=== PATIENT | female | born 2000 | race Caucasian/White ===

== ENCOUNTER → 2022-06-03 09:04 | Outpatient (CLI) | payer OTHER, SELFPAY ==
[2022-06-03 09:50] LABS: Basophils # 0.2 K/mm3 (0-0.2); Basophils % 1.5 % (0.1-2.0); Eosinophils # 0.5 K/mm3 (0.0-0.4); Eosinophils % 4.8 % (0.1-12.0); Hematocrit 41.2 % (37.0-47.0); Hemoglobin 13.6 g/dL (12.2-16.2); Lymphocytes # 2.7 K/mm3 (0.7-4.5); Lymphocytes % 23.5 % (10-50); Mean Corpuscular Hemoglobin 26.2 pg (27.0-31.2); Mean Corpuscular Volume 79.2 fl (81-99); Mean Platelet Volume 6.9 fl (7.4-10.4); Monocytes # 0.5 K/mm3 (0.1-1.0); Neutrophils # 7.5 K/mm3 (1.8-7.8); Neutrophils % 66.3 % (37.0-80.0); Platelet Count 437 K/mm3 (142-424); Red Blood Count 5.21 M/mm3 (4.20-5.40); Red Cell Distribution Width 14.1 % (11.5-17.5); White Blood Count 11.4 K/mm3 (4.8-10.8)
[2022-06-03 10:26] LABS: Alanine Aminotransferase 37 U/L (12-78); Albumin Level 4.2 g/dl (3.5-5.0); Albumin/Globulin Ratio 1.5 (1.1-1.8); Alkaline Phosphatase 90 U/L (38-126); Anion Gap 10.4 mEq/L (5-15); Aspartate Amino Transferase 33 U/L (14-36); Bilirubin,Total 0.4 mg/dl (0.2-1.3); Blood Urea Nitrogen 12 mg/dl (7-17); Carbon Dioxide 27 mmol/L (22.0-30.0); Chloride 104 mmol/L (98-107); Estimated Glomerular Filt Rate 103 ml/min (>60); GFR (African American) 124 ML/MIN (>60); Globulin 2.8 g/dL (1.3-3.2); Glucose 88 mg/dl (74-100); Potassium 4.4 mmoL/L (3.5-5.1); Sodium 137 mmol/L (136-145)
[2022-06-03 10:43] LABS: T4 (Thyroxine) 6.9 ug/dl (5.53-11.0)
[2022-06-03 10:57] LABS: Thyroid Stimulating Hormone 1.03 uIU/mL (0.465-4.68)
[2022-06-04 08:20] LABS: Thyroid Peroxidase Antibodies 12 IU/mL (0-34); Triiodothyronine (T3) Free 2.5 pg/mL (2.0-4.4)
[2022-06-04 13:03] LABS: Insulin Level Total 28.5 uIU/mL (2.6-24.9)
== END ==
PROVIDERS: PCP Nurse Practitioner Family; Visit Provider Nurse Practitioner Family
DX: F41.0 Panic disorder [episodic paroxysmal anxiety] (principal); F33.2 Major depressive disorder, recurrent severe without psychotic features
CPT/HCPCS: 36415; 80053; 83525; 84436; 84443; 84481; 85025; 86376

== ENCOUNTER → 2022-06-20 10:26 | Outpatient (CLI) | payer OTHER, SELFPAY ==
--- NOTE | 2022-06-20 10:26 | US_ITS ---
FINAL REPORT CLINICAL HISTORY: irregular periods FINDINGS: Transvaginal sonographic images of the pelvis were obtained. The uterus measures 6.4 x 3.5 x 2.7 cm. The endometrium measures 6 mm, which is within normal limits. No uterine mass is identified. The right ovary measures 3.1 cm in length and left ovary measures 2.8 cm in length. Normal blood flow seen to the ovaries. Multiple follicles are present bilaterally. There is no evidence of free fluid. IMPRESSION: Multiple follicles are present in each ovary, may represent PCOS. Reviewed, Interpreted and Dictated by Maximino Acosta III, MD Transcribed by Keysha Arreguin Authenticated and [facility]
== END ==
PROVIDERS: PCP Nurse Practitioner Family; Visit Provider Obstetrics & Gynecology
DX: N92.6 Irregular menstruation, unspecified (principal)
CPT/HCPCS: 76830

== ENCOUNTER 2022-10-03 20:54 | Emergency (ER) | payer OTHER, SELFPAY ==
[2022-10-03 20:57] VITALS: BP 155/91; PULSE 71; RESP 18; TEMP 36.8; O2SAT 97; BMI 40.7
--- NOTE | 2022-10-03 21:02 | PC.NURSE ---
Dr. Clifford at
--- NOTE | 2022-10-03 21:03 | XR_ITS ---
PROCEDURE INFORMATION: Exam: XR Left Foot Exam date and time: 10/03/2022 9:02 PM Age: 22 years old Clinical indication: Injury or trauma; Other: Stubbed left fifth pinky toe. Blunt trauma; Foot; Patient HX: Stubbed left 5th (pinky) toe Monday night. ; Additional info: Fifth toe pain TECHNIQUE: Imaging protocol: Radiologic exam of the left foot. Views: 3 or more views. COMPARISON: No relevant prior studies available. FINDINGS: Bones/joints: Apparent subtle irregularity base of fifth distal phalanx. Possible synostosis of fifth middle and distal phalanges. No dislocation. Soft tissues: Soft tissue swelling of fifth digit. IMPRESSION: Possible fifth distal phalanx fracture. Consider dedicated radiographs of fifth digit.
--- NOTE | 2022-10-03 21:33 | HMH.EDGENADL ---
Discharge Plan Disposition Patient Disposition: Home, Self-Care Condition: Good Chief Complaint: PAIN Prescriptions Prescriptions: No Action Aimovig Autoinjector 140 mg/mL auto-injector 140 mg SQ QMONTH eletriptan 20 mg tablet 20 mg PO Q2H PRN Rx Instructions: do not exceed 2 doses per 24 hrs propranolol 60 mg tablet 60 mg PO BID topiramate 25 mg tablet 25 mg PO DAILY bupropion HCl 100 mg tablet 100 mg PO ONCE escitalopram oxalate 20 mg tablet 20 mg PO DAILY metformin 500 mg tablet extended release 24 hr 500 mg PO TIDWMEAL Qty: 90 2RF Referrals Follow up/Referrals: Provider,Referral, MD [Primary Care Provider] - See instructions Activity Restrictions/Add. Instructions Additional Instructions/Restrictions: Please follow-up with your primary care provider. Please return to the emergency department if you develop any new or worsening symptoms or become concerned for your health. Consider gabe taping your fourth and fifth toes as needed for comfort. Clinical Impressions Clinical Impression: Pain and swelling of toe of left foot Fracture of toe of right foot Qualifiers: Encounter type: initial encounter Toe: lesser toe Fracture type: closed Phalanx: distal Fracture alignment: nondisplaced Qualified Code(s): S92.534A - Nondisplaced fracture of distal phalanx of right lesser toe(s), initial encounter for closed fracture Discharge ED Provider: Jai Clifford Adult HPI General Chief complaint: PAIN Stated complaint: ao [id number]@1100 at home injured little toe Time Seen by Provider: 10/03/22 21:01 Mode of Arrival: Ambulatory Source of Information: Patient Limitations: No Limitations Description of Symptoms (Recalled from ER Triage Doc. by RN): Pt reports left pinky toe pain from an incident on monday. Toe is bruised and she is having increased pain. History of Present Illness HPI narrative: 22-year-old female reportedly previously healthy presents with left foot pain after striking her left fifth toe on the door a couple of days ago. Pain and discoloration are worsening so she presented to the ER. No other symptoms reported. Related Data Home Medications Medication Instructions Recorded Confirmed bupropion HCl 100 mg tablet 100 mg PO ONCE 06/16/22 07/21/22 eletriptan 20 mg tablet 20 mg PO Q2H PRN 06/16/22 07/21/22 erenumab-aooe 140 mg/mL 140 mg SQ QMONTH 06/16/22 07/21/22 subcutaneous auto-injector (Aimovig Autoinjector) escitalopram oxalate 20 mg tablet 20 mg PO DAILY 06/16/22 07/21/22 propranolol 60 mg tablet 60 mg PO BID 06/16/22 07/21/22 topiramate 25 mg tablet 25 mg PO DAILY 06/16/22 07/21/22 Previous Rx's Medication Instructions Recorded metformin 500 mg tablet,extended 500 mg PO TIDWMEAL #90 tabs 06/16/22 release 24 hr Allergies Allergy/AdvReac Type Severity Reaction Status Date / Time No Known Allergies Allergy Verified 07/21/22 14:53 [facility] Disclaimer: The information contained in this section may have been updated after the patient was seen, as this information can be updated by other users. Medical History Anxiety Depression HSIL (high grade squamous intraepithelial lesion) on Pap smear of cervix Irregular periods Migraine PCOS (polycystic ovarian syndrome) Surgical History H/O wrist surgery History of surgery on arm History of tonsillectomy [place] teeth extracted Social History Smoking Status: Never smoker alcohol intake: never current occupational status: employed Travel in the last 8 weeks: None ROS Obtained: Yes All systems reviewed & no additional complaints except as documented Physical Exam General General appearance: alert and in no apparent distress Head Head exam: atraumatic and normocephalic Eye Eye exam: Present norm
[2022-10-03 22:26] VITALS: BP 135/89; PULSE 73; RESP 18; TEMP 36.8
[2022-10-03 22:30] VITALS: BP 138/88; PULSE 74; RESP 18; TEMP 36.8
== END 2022-10-03 22:32 | disposition home or self-care (01) ==
PROVIDERS: Emergency Provider Emergency Medicine
DX: S92.534A Nondisplaced fracture of distal phalanx of right lesser toe(s), initial encounter for closed fracture (principal); W22.8XXA Striking against or struck by other objects, initial encounter; F41.9 Anxiety disorder, unspecified; F32.A Depression, unspecified; E28.2 Polycystic ovarian syndrome
CPT/HCPCS: 73630; 99283; 99284

== ENCOUNTER → 2022-11-04 14:53 | Outpatient (CLI) | payer OTHER, SELFPAY ==
--- NOTE | 2022-11-04 15:01 | XR_ITS ---
FINAL REPORT CLINICAL HISTORY: R ankle pain after fall FINDINGS: Right ankle Three views were obtained. There is no acute fracture or dislocation. The joint spaces appear normal. There is mild soft tissue edema about the ankle. IMPRESSION: No acute process. Reviewed, Interpreted and Dictated by Kevin Victoria MD Transcribed by Barbara Nails Authenticated and . [facility]
== END ==
PROVIDERS: PCP Student in an Organized Health Care Education/Training Program; Visit Provider Student in an Organized Health Care Education/Training Program
DX: M25.571 Pain in right ankle and joints of right foot (principal); W19.XXXA Unspecified fall, initial encounter
CPT/HCPCS: 73610

== ENCOUNTER 2023-08-06 05:39 | Emergency (ER) | payer BC, SELFPAY ==
--- NOTE | 2023-08-06 05:30 | ECG_ITS ---
APPROVED REPORT Exam: Resting ECG HR:76 bpm ECG Measurements Heart Rate 76 AXES NE 153 P 43 QRSd 100 QRS 67 QT 386 T 40 QTc 416 Conclusion SINUS RHYTHM WITH SINUS ARRHYTHMIA NORMAL ECG Electronically signed by : ARIAS GAMBOA, 08/06/2023 07:31:16
[2023-08-06 05:40] VITALS: BP 163/96; PULSE 85; RESP 19; TEMP 36.6; O2SAT 99; BMI 40.7
[2023-08-06 05:44] VITALS: BP 142/89; PULSE 73; RESP 16; TEMP 36.6; O2SAT 97
--- NOTE | 2023-08-06 05:48 | XR_ITS ---
PROCEDURE INFORMATION: Exam: XR Chest Exam date and time: 08/06/2023 6:32 AM Age: 23 years old Clinical indication: Chest wall pain; Additional info: Cp TECHNIQUE: Imaging protocol: Radiologic exam of the chest. Views: 1 view. COMPARISON: No relevant prior studies available. FINDINGS: Tubes, catheters and devices: Leads overlying chest. Lungs: Mild underinflation. No definite consolidation. Pleural spaces: No significant pleural effusion. No pneumothorax. Heart/Mediastinum: No cardiomegaly. Bones/joints: No displaced fracture. Soft tissues: Unremarkable. IMPRESSION: No definite acute cardiopulmonary disease.
--- NOTE | 2023-08-06 05:49 | ED_ITS ---
Discharge Plan Disposition Patient Disposition: Home, Self-Care Prescriptions Prescriptions: No Action Aimovig Autoinjector 140 mg/mL auto-injector 140 mg SQ QMONTH eletriptan 20 mg tablet 20 mg PO Q2H PRN Rx Instructions: do not exceed 2 doses per 24 hrs propranolol 60 mg tablet 60 mg PO BID topiramate 25 mg tablet 25 mg PO DAILY bupropion HCl 100 mg tablet 100 mg PO ONCE escitalopram oxalate 20 mg tablet 20 mg PO DAILY naproxen 500 mg tablet 500 mg PO BID Qty: 20 0RF Referrals Follow up/Referrals: Marko Ernst MD [Staff Physician] - See instructions Provider,MD Jennifer [Primary Care Provider] - See instructions Activity Restrictions/Add. Instructions Additional Instructions/Restrictions: At this time it was felt you are safe to be discharged home. If new or worsening symptoms please do not hesitate to return the emergency department. Please call and schedule appoint with Dr. Ernst as soon as you are able. Clinical Impressions Clinical Impression: Chest pain Discharge ED Provider: Al Canas [facility] General Chief Complaint: Chest Pain Stated Complaint: Chest Pain Time Seen by Provider: 08/06/23 05:41 Mode of Arrival: Ambulatory Source of Information: Patient Limitations: No Limitations Description of Symptoms (Recalled from ER Triage Doc. by RN): 23 F presents from home with c/o right sided chest pain that started around 2300 last night prior to her going to bed. This pain woke her up around 0100 so she took some Tylenol and went back to bed. She woke up around 0500 and the pain was worse and all over now. Patient reports this as sharp, pressure rated 7/10. NAD, VSS History of Present Illness HPI narrative: Patient is a 23-year-old female with no pertinent past medical history who presents emergency department for evaluation of chest tightness. Onset was acute, occurring at 11 PM last night, diffuse chest tightness. Due to persistent symptoms she presents here for continued evaluation. No other acute complaints at this time. Related Data Home Medications Medication Instructions Recorded Confirmed bupropion HCl 100 mg tablet 100 mg PO ONCE 06/16/22 11/04/22 eletriptan 20 mg tablet 20 mg PO Q2H PRN 06/16/22 11/04/22 erenumab-aooe 140 mg/mL 140 mg SQ QMONTH 06/16/22 11/04/22 subcutaneous auto-injector (Aimovig Autoinjector) escitalopram oxalate 20 mg tablet 20 mg PO DAILY 06/16/22 11/04/22 propranolol 60 mg tablet 60 mg PO BID 06/16/22 11/04/22 topiramate 25 mg tablet 25 mg PO DAILY 06/16/22 11/04/22 Previous Rx's Medication Instructions Recorded naproxen 500 mg tablet 500 mg PO BID #20 tabs 11/04/22 Allergies Allergy/AdvReac Type Severity Reaction Status Date / Time No Known Allergies Allergy Verified 11/04/22 13:35 [facility] Disclaimer: The information contained in this section may have been updated after the patient was seen, as this information can be updated by other users. Medical History Anxiety Depression HSIL (high grade squamous intraepithelial lesion) on Pap smear of cervix Hypertension Irregular periods Migraine PCOS (polycystic ovarian syndrome) Surgical History H/O wrist surgery History of surgery on arm History of tonsillectomy [place] teeth extracted Social History Smoking Status: Never smoker alcohol intake: never current occupational status: employed Travel in the last 8 weeks: None ROS Obtained: Yes Systems reviewed as appropriate & no additional complaints except as documented Physical Exam General General appearance: alert and in no apparent distress Head Head exam: atraumatic and normocephalic Eye Eye exam: Present PERRL ENT ENT exam: Present mucous membranes moist Neck Neck exam: Present normal inspection Chest Chest inspection: Present normal inspection and symmetric chest wall rise Respiratory Respiratory exam: Present normal lung sounds bilaterally; Absent respiratory distress Cardiovascular Cardiovascular exam: Present regular rate and normal rhythm Abdominal Exam Abdominal exam: Present soft; Absent tenderness Extremities Exam Extremities exam: Present normal inspection Neurological Exam Neurological exam: Present alert Psychiatric Psychiatric exam: Present normal affect Skin Skin exam: Present warm and dry HEART Score HEART Score HEART Score assessment performed?: Yes History (anamnesis): Moderately suspicious ECG: Normal Age: <45 years Risk factors: 1-2 risk factors Troponin: </= normal limit HEART Score: 2 Critical Care Critical Care Time Critical Care Time: No Medical Decision Making Donnell Inquiry Pt receiving controlled substance: No Vital Signs Vital Signs: 08/06/23 05:40 08/06/23 05:44 Temperature 98 F 98 F Temperature Source Oral Oral Pulse Rate 73 Pulse Rate [Left] 85 Respiratory Rate 19 16 Blood Pressure 142/89 H Blood Pressure [Right Arm] 163/96 H Blood Pressure Mean [Right Arm] 118 Blood Pressure Source Automatic Cuff Blood Pressure Source [Right Arm] Automatic Cuff Blood Pressure Position Sitting Blood Pressure Position [Right Arm] Supine 02 Sat by Pulse Oximetry 99 97 Oxygen Delivery Method Room Air Room Air Lab Data Labs: Lab Results 08/06/23 06:00: WBC 13.2 H, RBC 4.99, Hgb 13.1, Hct 41.1, MCV 82.5, MCH 26.4 L, MCHC 31.9, RDW 14.3, Plt Count 360, MPV 7.6, Neut % (Auto) 64.2, Lymph % (Auto) 24.9, [place] % (Auto) 4.5, Eos % (Auto) 5.3, Baso % (Auto) 1.0, Neut # (Auto) 8.5 H, Lymph # (Auto) 3.3, [place] # (Auto) 0.6, Eos # (Auto) 0.7 H, Baso # (Auto) 0.1, Sodium 140, Potassium 3.6, Chloride 103, Carbon Dioxide 29, Anion Gap 11.6, BUN 13, Creatinine 0.70, Estimated Creat Clear 202, Estimated GFR 102, Est GFR ( Amer) 123, Glucose 114 H, Calcium 9.6, Total Bilirubin 0.3, AST 45 H, ALT 37, Alkaline Phosphatase 104, Troponin I < 0.01, Total Protein 7.3, Albumin 3.9, Globulin 3.4 H, Albumin/Globulin Ratio 1.1, Serum HCG, Qual Negative 08/06/23 06:00 08/06/23 06:00 Response Orders (Tests/Meds): ED MEDICATIONS Discontinued Medications Generic Name Dose Route Start Last Admin Trade Name Abrahamq PRN Reason Stop Dose Admin Acetaminophen 1,000 mg 08/06/23 05:45 08/06/23 05:54 Acetaminophen 500mg Tab PO 08/06/23 05:46 1,000 mg ONCE ONE Administration Aspirin 324 mg 08/06/23 05:47 08/06/23 05:54 Aspirin 81mg Chewable Tablet PO 08/06/23 05:48 324 mg ONCE ONE Administration Belladonna Alkaloids 60 ml 08/06/23 05:45 08/06/23 05:55 Belladonna Alkaloids 60 Ml Ml PO 08/06/23 05:46 60 ml ONCE ONE Administration Ketorolac Tromethamine 30 mg 08/06/23 05:45 08/06/23 05:55 Ketorolac 30mg/Ml Vial IV 08/06/23 05:46 30 mg ONCE ONE Administration Methocarbamol 1,000 mg 08/06/23 05:46 08/06/23 05:55 Methocarbamol 500mg Tablet PO 08/06/23 05:47 1,000 mg ONCE ONE Administration ORDERS Category Date Time Status CXR --portable [XR chest portable] Stat Exams 08/06/23 05:48 Completed CBC w/Auto Diff [Complete Blood Count Auto Diff] Stat Lab 08/06/23 06:00 Completed CMP [Comprehensive Metabolic Panel] Stat Lab 08/06/23 06:00 Completed HCG Qualitative, Serum Stat Lab 08/06/23 06:00 Completed Trop I [Troponin I] Stat Lab 08/06/23 06:00 Completed Troponin I Q3H Lab 08/06/23 09:00 Ordered Troponin I Q3H Lab 08/06/23 12:00 Ordered ECG Data Tracing #1: ECG Narrative: Independently interpreted by me, rate is 76, rhythm is regular, axis is normal, no ST elevation in anatomical contiguous leads, QTc 416. MDM Narrative Medical Decision Narrative: In summary patient is a 23-year-old female past medical history described above presents emergency department for evaluation of chest pain. Patient is hemodynamically stable nontoxic-appearing upon arrival, afebrile. Differential diagnosis includes ACS, noncardiac chest pain, among others. No concern for pulmonary embolism as patient is PERC negative. Initial interventions include multimodal pain control. Initial workup reviewed by me, hematologic labs are nonactionable, nonspecific mild leukocytosis, no HARDY or critical electrolyte abnormality. Initial troponin undetectably low. hCG negative. Upon repeat evaluation patient remained hemodynamically stable. Given this patient is appropriate for discharge at this time will be referred to Dr. Ernst on an outpatient basis.
[2023-08-06] MEDS: ASPIRIN 81MG CHEWABLE TABLET 324 MG PO (05:54)
[2023-08-06] MEDS: ACETAMINOPHEN 500MG TAB 1000 MG PO (05:54)
[2023-08-06] MEDS: BELLADONNA ALKALOIDS 60 ML ML PO (05:55)
[2023-08-06] MEDS: KETOROLAC 30MG/ML VIAL 30 MG IV (05:55)
[2023-08-06] MEDS: METHOCARBAMOL 500MG TABLET 1000 MG PO (05:55)
[2023-08-06 06:23] LABS: Basophils # 0.1 K/mm3 (0-0.2); Eosinophils # 0.7 K/mm3 (0.0-0.4); Eosinophils % 5.3 % (0.1-12.0); Hematocrit 41.1 % (37.0-47.0); Hemoglobin 13.1 g/dL (12.2-16.2); Lymphocytes # 3.3 K/mm3 (0.7-4.5); Lymphocytes % 24.9 % (10-50); Mean Corpuscular HGB Conc 31.9 g/dL (31.8-35.4); Mean Corpuscular Hemoglobin 26.4 pg (27.0-31.2); Mean Corpuscular Volume 82.5 fl (81-99); Mean Platelet Volume 7.6 fl (7.4-10.4); Monocytes # 0.6 K/mm3 (0.1-1.0); Monocytes % 4.5 % (1.7-9.3); Neutrophils # 8.5 K/mm3 (1.8-7.8); Neutrophils % 64.2 % (37.0-80.0); Platelet Count 360 K/mm3 (142-424); Red Blood Count 4.99 M/mm3 (4.20-5.40); Red Cell Distribution Width 14.3 % (11.5-17.5); White Blood Count 13.2 K/mm3 (4.8-10.8)
[2023-08-06 06:30] LABS: Alanine Aminotransferase 37 U/L (12-78); Albumin Level 3.9 g/dl (3.5-5.0); Albumin/Globulin Ratio 1.1 (1.1-1.8); Alkaline Phosphatase 104 U/L (38-126); Anion Gap 11.6 mEq/L (5-15); Aspartate Amino Transferase 45 U/L (14-36); Bilirubin,Total 0.3 mg/dl (0.2-1.3); Blood Urea Nitrogen 13 mg/dl (7-17); Calcium 9.6 mg/dl (8.4-10.2); Carbon Dioxide 29 mmol/L (22.0-30.0); Chloride 103 mmol/L (98-107); Creatinine Clearance Estimated 202 mL/min (50-200); Estimated Glomerular Filt Rate 102 ml/min (>60); GFR (African American) 123 ML/MIN (>60); Globulin 3.4 g/dL (1.3-3.2); Glucose 114 mg/dl (74-100); Potassium 3.6 mmoL/L (3.5-5.1); Sodium 140 mmol/L (136-145); Total Protein,Serum 7.3 g/dl (6.3-8.2)
[2023-08-06 06:31] LABS: HCG Qualitative, Serum Negative (Negative)
--- NOTE | 2023-08-06 06:33 | PC.NURSE ---
Pt states her pain is better after medication, Radiology called to come take portable CXR
--- NOTE | 2023-08-06 06:55 | PC.NURSE ---
Per Dr Canas, we will reach out to [facility] if they cannot assist we will dispo
[2023-08-06 07:01] VITALS: BP 135/89; PULSE 63; RESP 16; O2SAT 98
[2023-08-06 07:02] LABS: Troponin I < 0.01 ng/ml (0.00-0.034)
[2023-08-06 07:33] VITALS: BP 139/72; PULSE 79; RESP 18; TEMP 36.6; O2SAT 97
== END 2023-08-06 07:35 | disposition home or self-care (01) ==
PROVIDERS: Emergency Provider Emergency Medicine
DX: R07.89 Other chest pain (principal); I10 Essential (primary) hypertension
CPT/HCPCS: 71045; 80053; 84484; 84703; 85025; 93005; 96374; 99284

== ENCOUNTER 2023-11-09 10:45 | Outpatient (CLI) | payer BC, SELFPAY ==
[2023-11-09 11:11] LABS: Basophils # 0.1 K/mm3 (0-0.2); Basophils % 0.7 % (0.1-2.0); Eosinophils # 0.3 K/mm3 (0.0-0.4); Hematocrit 42.6 % (37.0-47.0); Hemoglobin 13.6 g/dL (12.2-16.2); Lymphocytes # 2.5 K/mm3 (0.7-4.5); Lymphocytes % 24.3 % (10-50); Mean Corpuscular HGB Conc 31.9 g/dL (31.8-35.4); Mean Corpuscular Hemoglobin 26.6 pg (27.0-31.2); Mean Corpuscular Volume 83.5 fl (81-99); Mean Platelet Volume 7.5 fl (7.4-10.4); Monocytes # 0.4 K/mm3 (0.1-1.0); Monocytes % 4.2 % (1.7-9.3); Neutrophils # 7.1 K/mm3 (1.8-7.8); Neutrophils % 67.7 % (37.0-80.0); Platelet Count 386 K/mm3 (142-424); Red Cell Distribution Width 14.5 % (11.5-17.5); White Blood Count 10.5 K/mm3 (4.8-10.8)
[2023-11-09 11:51] LABS: Albumin Level 4.2 g/dl (3.5-5.0); Chloride 107 mmol/L (98-107); Potassium 4.2 mmoL/L (3.5-5.1); Sodium 138 mmol/L (136-145)
[2023-11-09 11:53] LABS: Blood Urea Nitrogen 10 mg/dl (7-17); Estimated Glomerular Filt Rate 102 ml/min (>60); GFR (African American) 123 ML/MIN (>60)
[2023-11-09 11:54] LABS: Alanine Aminotransferase 45 U/L (12-78); Albumin/Globulin Ratio 1.4 (1.1-1.8); Alkaline Phosphatase 94 U/L (38-126); Anion Gap 9.2 mEq/L (5-15); Aspartate Amino Transferase 34 U/L (14-36); Bilirubin,Total 0.6 mg/dl (0.2-1.3); Calcium 9.1 mg/dl (8.4-10.2); Carbon Dioxide 26 mmol/L (22.0-30.0); Cholesterol 216 mg/dl (140-200); Globulin 2.9 g/dL (1.3-3.2); Glucose 87 mg/dl (74-100); HDL Cholesterol 36 mg/dl (40-60); Iron 69 ug/dL (37-170); Total Protein,Serum 7.1 g/dl (6.3-8.2); Triglycerides 271 mg/dl (30-150); VLDL Cholesterol 54 mg/dL (0-40)
[2023-11-09 12:13] LABS: 25-OH Vitamin D, Total 18.6 ng/mL (30-100)
[2023-11-09 12:18] LABS: Direct LDL Cholesterol 136.21 mg/dL (100-129)
[2023-11-09 12:33] LABS: Thyroid Stimulating Hormone 1.83 uIU/mL (0.465-4.68)
[2023-11-09 12:57] LABS: Vitamin B12 266 pg/mL (239-931)
[2023-11-09 13:14] LABS: Hemoglobin A1C 5.5 % (4.0-6.0)
== END 2023-11-09 23:59 | disposition home or self-care (01) ==
LOC: LAB 10:48
PROVIDERS: PCP Nurse Practitioner Psychiatric/Mental Health; Visit Provider Nurse Practitioner Psychiatric/Mental Health
DX: F41.1 Generalized anxiety disorder (principal); F51.04 Psychophysiologic insomnia; F32.9 Major depressive disorder, single episode, unspecified
CPT/HCPCS: 36415; 80050; 80053; 80061; 82306; 82607; 83036; 83540; 84443; 85025